=== PATIENT | male | born 1970 | race Caucasian/White ===

== ENCOUNTER → 2017-11-04 | Outpatient (CLI) | payer MEDICAID ==
--- NOTE | 2017-11-04 15:56 | CONS ---
CONSULTATION REASON FOR CONSULTATION: Consultation for sleep apnea. 47-year-old male patient, referred to me for evaluation of obstructive sleep apnea. 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 He snores loud especially when he is on his back. He is not obese and he has quite a very active and athletic. He drives 80 miles back and forth each direction to [place] every day and he does not fall asleep while driving. He is getting more tired and somewhat drowsy at work. Never been involved in a motor vehicle accident. He snores. He has been told he stops breathing at night by the . Wakes up with dry mouth. He goes to bed around 9 p.m., wakes up at 5:00 a.m. in the morning. It takes him a few minutes to fall asleep. No sleep walking or sleep talking. No restlessness in the lower extremities. No trouble with paying attention, concentration, or memory during the day. No other medical problems or comorbidities. No recent weight gain. PAST MEDICAL HISTORY: Negative. SURGICAL HISTORY: Negative. DRUG ALLERGIES: Not known. OUTPATIENT MEDICATION: Includes vitamin D along with calcium, fish oil, vitamin B12, vitamin C. SOCIAL HISTORY: Nonsmoker. No history of alcohol. No history of IV drugs. FAMILY HISTORY: Negative for sleep apnea. REVIEW OF SYSTEMS: 12-point review of system was done. No reported history of choking or gasping for air at night. No nocturia. No insomnia. No sleepwalking. No anxiety or panic attacks. No palpitation. No heartburn. No sweating. No sleepwalking or sleep talking. No restlessness in lower extremities. No anxiety or depression. No claustrophobia. No sexual dysfunction. No depression. PHYSICAL EXAMINATION: BP is 143/83, pulse 82, respirations 16, temperature 98.0, saturation 96% on room air. Weight is 195, height is 5 feet 9 inches, BMI 28.7. Neck size 16 inches. General appearance: Calm, comfortable in no acute distress. Head is atraumatic, normocephalic. NECK: Supple. There is no JVD. No goiter or neck masses. Mallampati class IV. LUNGS: Clear to auscultation. HEART: Sounds regular rate and rhythm. Normal S1, S2. No S3, S4. No murmurs. ABDOMEN: Soft, nontender. No organomegaly. EXTREMITIES: No edema. No cyanosis or clubbing. NEUROLOGIC: Alert and oriented x3. No focal neurological deficits. PSYCHIATRIC: Negative for anxiety or depression. SKIN: Negative for any wounds or ulceration. IMPRESSION: 1. Loud snoring with questionable apneas. Suspect obstructive sleep apnea. Although overall suspicion is low. 2. Chronic fatigue and some mild degree of sleepiness [place] score of 12. 3. Healthy 47-year-old male patient without any major problems or comorbidities. PLAN: We will proceed with a screening polysomnogram. MMODL / IJN: [id number] /
== END | disposition home or self-care (01) ==
LOC: SLEEP 13:55
PROVIDERS: ATTEND Internal Medicine Critical Care Medicine
DX: R06.83 Snoring (principal); R53.82 Chronic fatigue, unspecified; Z79.899 Other long term (current) drug therapy
CPT/HCPCS: 99211

== ENCOUNTER → 2018-09-18 | Outpatient (CLI) | payer MEDICAID ==
[2018-09-18 11:34] LABS: Appearance,Urine Clear (Clear); Bilirubin,Urine Negative (Negative); Blood,Urine Negative (Negative); Color,Urine Yellow; Glucose,Urine (UA) Negative (Negative); Ketones,Urine Negative (Negative); Leukocyte Esterase,Urine Negative (Negative); Nitrite,Urine Negative (Negative); PH, Urine 6.5 (5.0-8.0); Protein,Urine Negative (Negative); Specific Gravity,Urine 1.008 (1.001-1.035); Urobilinogen,Urine <2.0 mg/dL (<2.0)
[2018-09-18 18:51] LABS: Vitamin D 25 Hydroxy 40.9 ng/mL (30.0-100.0)
[2018-09-18 20:26] LABS: Albumin 4.7 g/dL (3.80-4.90); Albumin/Globulin Ratio 2.35 (1.60-3.17); Anion Gap 11.4 mmol/L (4.00-12.00); Calcium 9.4 mg/dL (8.7-10.3); Carbon Dioxide 23.6 mmol/L (21.6-31.8); LDL Cholesterol,Calculated 144.2 mg/dL (0.0-131.0); Potassium 4.4 mmol/L (3.5-5.5); Total Bilirubin 0.9 mg/dL (0.2-1.2); Total Protein 6.7 g/dL (6.2-8.2); VLDL Calculation 15.8 mg/dL (5.00-40.00)
== END | disposition home or self-care (01) ==
LOC: LABWHC1 10:43
DX: Z00.00 Encounter for general adult medical examination without abnormal findings (principal); I10 Essential (primary) hypertension; D51.0 Vitamin B12 deficiency anemia due to intrinsic factor deficiency; G47.33 Obstructive sleep apnea (adult) (pediatric)
CPT/HCPCS: 36415; 80053; 80061; 81003; 82306; 82607; 84146; 84153; 84402; 84403; 84443

== ENCOUNTER → 2018-10-14 | Outpatient (CLI) | payer MEDICAID ==
--- NOTE | 2018-10-14 09:41 | US ---
EXAMINATION TYPE: US liver DATE OF EXAM: 10/14/2018 COMPARISON: NONE CLINICAL HISTORY: K76.0 fatty liver; takes vitamins; sleep apnea EXAM MEASUREMENTS: Liver Length: 13.1 cm Gallbladder Wall: 0.2 cm CBD: 0.4 cm Right Kidney: 11.1 x 5.7 x 5.2 cm Pancreas: Obscured by bowel gas Liver: fatty liver as is hyperechoic to right renal cortex Gallbladder: wnl Evidence for sonographic Layton's sign: No CBD: wnl Right Kidney: wnl IMPRESSION: 1. Liver is increased in echogenicity which can be seen with hepatic steatosis, diffuse hepatocellula r disease or hepatitis. Correlate clinically.
== END ==
LOC: RADUSWWP 08:57
PROVIDERS: ATTEND Internal Medicine
DX: K76.9 Liver disease, unspecified (principal)
CPT/HCPCS: 76705

== ENCOUNTER → 2018-10-14 | Outpatient (CLI) | payer MEDICAID ==
[2018-10-14 10:13] LABS: Basophils % (A) 1 %; Eosinophils # (A) 0.2 k/uL (0-0.7); Eosinophils % (A) 3 %; HCT 45.7 % (39.0-53.0); HGB 14.8 gm/dL (13.0-17.5); Lymphocytes # (A) 1.1 k/uL (1.0-4.8); Lymphocytes % (A) 19 %; MCH 29.1 pg (25.0-35.0); MCHC 32.5 g/dL (31.0-37.0); MCV 89.5 fL (80.0-100.0); Mean Platelet Volume 7.8; Monocytes # (A) 0.4 k/uL (0-1.0); Monocytes % (A) 7 %; Neutrophils # (A) 3.9 k/uL (1.3-7.7); Neutrophils % (A) 70 %; Platelet Count 206 k/uL (150-450); RDW 13.3 % (11.5-15.5); WBC 5.6 k/uL (3.8-10.6)
== END ==
LOC: LABWHC1 09:34
PROVIDERS: ATTEND Internal Medicine
DX: Z00.00 Encounter for general adult medical examination without abnormal findings (principal); I10 Essential (primary) hypertension; G47.33 Obstructive sleep apnea (adult) (pediatric); D58.0 Hereditary spherocytosis
CPT/HCPCS: 36415; 85025